=== PATIENT | male | born 1975 | race Caucasian/White ===

== ENCOUNTER 2020-06-17 11:51 | Emergency (ER) | payer MEDICAID ==
[~2020-06-17] VITALS: Ht 162.6 cm; Wt 59.0 kg
[~2020-06-17 11:51] MED LIST: QUET25TA46 PO
[2020-06-17 11:54] VITALS: BP 135/84
--- NOTE | 2020-06-17 11:54 | NUR ---
Patient BIBA BLS, transferred to bed [facility]. RN evaluating patient at bedside.
--- NOTE | 2020-06-17 12:05 | NUR ---
45/M [place] with no chief complaint at this time. Patient admitted to EMS that he ingested Vodka today and was visibly impaired. Pt told EMS he was going to [place]. Upon arrival patient arrived to ED AOX4 with slurred speech. Patient admits to drinking "too much." Patient states "I don't feel well." Patient is arousable to verbal stimuli and answers questions appropriately. VSS.
[2020-06-17 14:16] VITALS: BP 110/67
--- NOTE | 2020-06-17 14:26 | NUR ---
Patient appears to be resting comfortably in bed. Vital Signs within normal limits. Respirations even and unlabored.
--- NOTE | 2020-06-17 16:12 | NUR ---
Pt was discharged by Dr. Badillo, all the instructions were given by Dr. Badillo.
== END 2020-06-17 16:06 | disposition home or self-care (01) ==
LOC: MED 11:51
DX: R40.4 Transient alteration of awareness (principal); F10.129 Alcohol abuse with intoxication, unspecified; F41.9 Anxiety disorder, unspecified; Z79.899 Other long term (current) drug therapy
CPT/HCPCS: 36415; 99283; G0482

== ENCOUNTER 2020-06-18 22:56 | Emergency (ER) | payer MEDICAID ==
[~2020-06-18] VITALS: Ht 162.6 cm; Wt 68.0 kg
[2020-06-18 22:56] VITALS: BP 124/90
--- NOTE | 2020-06-18 22:56 | NUR ---
PT BIBA TAKEN TO ER BED # 7
[2020-06-18] MEDS ORDERED: MULTIVITAMIN-12 10 ML, THIAMINE 100 MG, MAGNESIUM SULFATE 50% 2,000 MG, FOLIC ACID 1 MG... IV SCH ×5 (23:00)
--- NOTE | 2020-06-18 23:07 | NUR ---
IV ESTABLISHED, LABS DRAWN AND GIVEN TO CONTACT CENTER PROFESSIONAL
[2020-06-18] MEDS ORDERED: MULTIVITAMIN-12 10 ML VIAL IV ONE (23:12)
[2020-06-18 23:13] LABS: BASOPHILS % (AUTO) 0.7 % (0.0-2.0); EOSINOPHILS # (AUTO) 0.1 K/uL (0-0.4); EOSINOPHILS % (AUTO) 0.7 % (0.0-4.0); HEMATOCRIT 36.7 % (36-52); HEMOGLOBIN 12.4 g/dL (12.0-18.0); LYMPHOCYTES # (AUTO) 2.7 K/uL (2.0-11.5); LYMPHOCYTES % (AUTO) 36.2 % (20.5-51.1); MEAN CORPUSCULAR HEMOGLOBIN 32 pg (27-31); MEAN CORPUSCULAR HGB CONC 34 g/dL (33-37); MEAN CORPUSCULAR VOLUME 94.3 fL (80-94); MONOCYTES # (AUTO) 0.6 K/uL (0.8-1.0); MONOCYTES % (AUTO) 8.3 % (1.7-9.3); NEUTROPHILS % (AUTO) 54.1 % (42.2-75.2); PLATELET COUNT (AUTO) 140 K/uL (140-450); RED CELL DISTRIBUTION WIDTH 15.8 % (11.6-13.7); WHITE BLOOD COUNT (AUTO) 7.4 K/uL (4.8-10.8)
[2020-06-18] MEDS ORDERED: THIAMINE 200 MG/2 ML VIAL ONE (23:13)
[2020-06-18] MEDS ORDERED: MAG SULF 2000 MG/WATER PREMIX 50 ML IV ONE (23:15)
[2020-06-18] MEDS ORDERED: FOLIC ACID 5 MG/ML SYR ONE (23:16)
--- NOTE | 2020-06-18 23:17 | NUR ---
URINE SAMPLE OBTAINED AND LEFT FOR LAB TO PICKUP
--- NOTE | 2020-06-18 23:23 | NUR ---
EKG PERFORMED AT BEDSIDE
[2020-06-18 23:29] LABS: ALBUMIN 4.1 g/dL (3.4-5.0); ANION GAP 17.4 (8-16); ASPARTATE AMINOTRANSFERASE 72 U/L (15-37); CARBON DIOXIDE 27.9 mmol/L (21-32); CHLORIDE 103 mmol/L (98-107); CREATININE 0.9 mg/dL (0.6-1.3); GFR ARICAN-AMERICAN 117 mL/min (>90); GLUCOSE 91 mg/dL (74-106); POTASSIUM 3.3 mmol/L (3.5-5.1); SODIUM SERUM 145 mmol/L (136-145); TOTAL BILIRUBIN 0.3 mg/dL (0.0-1.0); UREA NITROGEN, BLOOD 8 mg/dL (7-18)
[2020-06-18 23:30] LABS: SALICYLATE < 2.8 mg/dL (2.8-20.0)
[2020-06-18 23:32] LABS: ACETAMINOPHEN < 0.5 ug/ml (10-30)
[2020-06-18 23:48] LABS: BARBITURATE, URINE NEGATIVE ng/ml (NEG <=200); BENZODIAZEPINE, URINE POSITIVE ng/mL (NEG <=200); CANNABINOID, URINE NEGATIVE ng/mL (NEG <=50); COCAINE, URINE NEGATIVE ng/mL (NEG <=300); OPIATE, URINE NEGATIVE ng/mL (NEG <=2000); PHENCYCLIDINE SCREEN,URINE NEGATIVE ng/mL (NEG <=25)
--- NOTE | 2020-06-18 23:51 | NUR ---
RECEIVED REPORT FROM PRIMARY NURSE. WILL CONT CARE AT THIS TIME.
--- NOTE | 2020-06-19 00:32 | NUR ---
GAVE REPORT TO PRIMARY NURSE. TRANSFER OF CARE AT THIS TIME.
--- NOTE | 2020-06-19 02:42 | NUR ---
pt sleeping, no distress noted, respirations regular, even, and unlabored. 15 min checks comtinue
--- NOTE | 2020-06-19 04:34 | NUR ---
PT UP AND AMBULATED BY SELF TO RESTROOM WITH STEADY GAIT AND AMBULATED BACK TO BED WITHOUT ASSISTANCE.
--- NOTE | 2020-06-19 04:48 | NUR ---
PT HAD URINATED ON HIMSELF, GIVEN CLEAN, DRY PAPER SCRUBS.
[2020-06-19 05:01] VITALS: BP 118/83
--- NOTE | 2020-06-19 05:03 | NUR ---
Patient discharged with v/s stable. Written and verbal after care instructions given and explained. Patient verbalized understanding. Ambulatory with steady gait. All questions addressed prior to discharge. Advised to follow up with PMD.
== END 2020-06-19 05:01 | disposition home or self-care (01) ==
LOC: MED 22:56
DX: F10.129 Alcohol abuse with intoxication, unspecified (principal); Z79.899 Other long term (current) drug therapy
CPT/HCPCS: 36415; 80053; 80305; 85025; 93005; 96365; 99284; A9153; G0480; G0482; J3411; J3475; J3490

== ENCOUNTER 2020-06-27 09:35 | Emergency (ER) | payer MEDICAID ==
[~2020-06-27] VITALS: Ht 162.6 cm; Wt 59.9 kg
[2020-06-27 09:41] VITALS: BP 107/61
--- NOTE | 2020-06-27 09:41 | NUR ---
BIBA TO BED 4.
--- NOTE | 2020-06-27 09:42 | NUR ---
DR ADAME AT BEDSIDE EVALUATING PT.
--- NOTE | 2020-06-27 09:45 | NUR ---
45 Y/O MALE BIBA FOUND ON SIDE ON [address] IN [place] INTOXICATED. AAOX3. GCS 15. RESP EVEN AND UNLABORED. NO TRAUMA OR INJURY NOTED .PT AFIBRILE , PINK PALPEBRAL CONJUNCTIVA , SCE , FLAT SOFT ABDOMEN . PMH: SCHIZOPHRENIA, BIPOLAR NKA
--- NOTE | 2020-06-27 09:50 | NUR ---
PT TO CT SCAN VIA GURNEY WITH STABLE V/S.
--- NOTE | 2020-06-27 10:01 | NUR ---
LABS AT BEDSIDE.
--- NOTE | 2020-06-27 10:08 | NUR ---
PT COMFORTABLE IN BED SIDE RAILS UP X2 AND LOCK AT LOWEST POSITION.
[2020-06-27 10:13] LABS: BASOPHILS % (AUTO) 0.3 % (0.0-2.0); EOSINOPHILS # (AUTO) 0.1 K/uL (0-0.4); EOSINOPHILS % (AUTO) 1.4 % (0.0-4.0); HEMATOCRIT 38.5 % (36-52); HEMOGLOBIN 13.1 g/dL (12.0-18.0); LYMPHOCYTES # (AUTO) 1.8 K/uL (2.0-11.5); LYMPHOCYTES % (AUTO) 22.5 % (20.5-51.1); MEAN CORPUSCULAR HEMOGLOBIN 32 pg (27-31); MEAN CORPUSCULAR HGB CONC 34 g/dL (33-37); MEAN CORPUSCULAR VOLUME 94.3 fL (80-94); MONOCYTES # (AUTO) 1.1 K/uL (0.8-1.0); MONOCYTES % (AUTO) 14.2 % (1.7-9.3); NEUTROPHILS % (AUTO) 61.6 % (42.2-75.2); PLATELET COUNT (AUTO) 136 K/uL (140-450); RED BLOOD CELL COUNT(AUTO) 4.08 MIL/uL (4.20-6.10); RED CELL DISTRIBUTION WIDTH 15.8 % (11.6-13.7); WHITE BLOOD COUNT (AUTO) 8.1 K/uL (4.8-10.8)
--- NOTE | 2020-06-27 10:20 | NUR ---
pt refuse oral meds dr morris informed and aware. breana armando informed also.
[2020-06-27 10:26] LABS: ALBUMIN 3.7 g/dL (3.4-5.0); ANION GAP 17.9 (8-16); TOTAL BILIRUBIN 0.5 mg/dL (0.0-1.0)
[2020-06-27 10:29] LABS: POTASSIUM 2.9 mmol/L (3.5-5.1)
[2020-06-27] MEDS ORDERED: POTASSIUM CHLORIDE 10 MEQ TABER PO ONE (10:30)
[2020-06-27] MEDS ORDERED: LACTATED RINGERS 1,000 ML IV ONE (10:50)
[2020-06-27] MEDS ORDERED: POTASSIUM CHL 40 MEQ/ D5-1/2NS 1,000 ML IV ONE (10:50)
--- NOTE | 2020-06-27 11:21 | NUR ---
pt sleeping comfortably in bed side rails up and lock at lowest position.
--- NOTE | 2020-06-27 13:38 | NUR ---
pt comfortable sleeping in bed side rails up x2 and lock at lowest position .vs stable .
[2020-06-27 14:40] VITALS: BP 112/69
--- NOTE | 2020-06-27 15:25 | NUR ---
pt ambulate to restroom.
--- NOTE | 2020-06-27 15:26 | NUR ---
dr rojas at bedside revaluating pt.
== END 2020-06-27 16:19 | disposition home or self-care (01) ==
LOC: MED 09:35
DX: R41.82 Altered mental status, unspecified (principal); F10.129 Alcohol abuse with intoxication, unspecified; E87.6 Hypokalemia; Z79.899 Other long term (current) drug therapy
CPT/HCPCS: 36415; 70450; 80053; 82140; 85025; 96365; 96366; 99285; G0482

== ENCOUNTER 2020-10-02 17:13 | Emergency (ER) | payer MEDICAID ==
[~2020-10-02] VITALS: Ht 165.1 cm; Wt 65.8 kg
[2020-10-02 17:17] VITALS: BP 124/86
[2020-10-02] MEDS: NACL 0.9% 2,000 ML IV ONE (17:47)
[2020-10-02 20:05] VITALS: BP 118/70
== END 2020-10-02 20:05 | disposition home or self-care (01) ==
LOC: MED 17:13
DX: F10.129 Alcohol abuse with intoxication, unspecified (principal); Z79.899 Other long term (current) drug therapy; Z98.890 Other specified postprocedural states
CPT/HCPCS: 96360; 99283; J7030

== ENCOUNTER 2020-10-03 07:42 | Emergency (ER) | payer MEDICAID ==
[~2020-10-03] VITALS: Ht 167.6 cm; Wt 68.0 kg
[2020-10-03 07:43] VITALS: BP 131/88
--- NOTE | 2020-10-03 07:51 | NUR ---
45/M BIBA C/O ALOC/ETOH. ANSWERING QUESTIONS SLOWLY BUT APPROPRIATELY. VSS ON BEDSIDE MONITOR.
--- NOTE | 2020-10-03 07:57 | NUR ---
DR. CURTIS EVALUATING PT AT BEDSIDE
--- NOTE | 2020-10-03 08:06 | NUR ---
PT ASSISTED WITH BREAKFAST TRAY
--- NOTE | 2020-10-03 10:28 | NUR ---
PT URINATED ON SELF AND GURNEY. PT CHANGED INTO NEW GOWN AND ALL SHEETS CHANGED.
--- NOTE | 2020-10-03 12:08 | NUR ---
Dr. Suh is evaluating the patient at bedside.
--- NOTE | 2020-10-03 12:08 | NUR ---
DR. CURTIS SPEAKING WITH PT AT BEDSIDE
[2020-10-03 12:55] VITALS: BP 109/63
--- NOTE | 2020-10-03 12:55 | NUR ---
Patient discharged with v/s stable. Ambulatory with steady gait. PT LEFT WITHOUT DISCHARGE PAPERWORK.
== END 2020-10-03 12:55 | disposition home or self-care (01) ==
LOC: MED 07:42
DX: F10.129 Alcohol abuse with intoxication, unspecified (principal); R56.9 Unspecified convulsions; Z79.899 Other long term (current) drug therapy
CPT/HCPCS: 99283

== ENCOUNTER 2021-05-14 19:28 | Emergency (ER) | payer MEDICAID ==
[~2021-05-14] VITALS: Ht 177.8 cm; Wt 83.9 kg
[2021-05-14 20:20] VITALS: BP 120/78
--- NOTE | 2021-05-14 22:13 | NUR ---
Patient laying in bed w eyes closed lowest position, x2 side rails up for patient safety. Breathing even and unlabored, NAD noted.
--- NOTE | 2021-05-15 00:35 | NUR ---
Patient ambulated to bathroom w steady gait.
--- NOTE | 2021-05-15 00:40 | NUR ---
Patient sitting in bed locked in lowest position, x1 siderail. Patient Aox4, GCS 15. Patient reports he had a lot of alcohol intake. Breathing even and unlabored, NAD noted.
[2021-05-15 00:56] VITALS: BP 125/83
== END 2021-05-15 00:56 | disposition home or self-care (01) ==
LOC: MED 19:28
DX: G92 Toxic encephalopathy (principal); F10.129 Alcohol abuse with intoxication, unspecified; Z79.899 Other long term (current) drug therapy
CPT/HCPCS: 99281